=== PATIENT | female | born 1960 | race Caucasian/White ===

== ENCOUNTER → 2024-03-17 13:39 | Outpatient (REF) | payer OTHER, SELFPAY | LOC: CLAB 13:39 | PROVIDERS: ATTENDING PHYSICIAN Student in an Organized Health Care Education/Training Program | DX: L81.9 Disorder of pigmentation, unspecified (principal) | CPT/HCPCS: 88305 ==

== ENCOUNTER 2024-11-14 06:24 | Day surgery (SDC) | payer OTHER, SELFPAY | END 2024-11-14 14:34 | disposition home or self-care (01) | LOC: GI 06:24 | PROVIDERS: ATTENDING PHYSICIAN Internal Medicine | DX: Z12.11 Encounter for screening for malignant neoplasm of colon (principal); D12.2 Benign neoplasm of ascending colon; K57.30 Diverticulosis of large intestine without perforation or abscess without bleeding; K64.8 Other hemorrhoids; Z80.0 Family history of malignant neoplasm of digestive organs | CPT/HCPCS: 45385; 88305 ==